=== PATIENT | female | born 1970 | race Caucasian/White ===

== ENCOUNTER 2019-11-13 16:23 | Emergency (ER) | payer OTHER ==
[~2019-11-13] VITALS: Ht 160 cm; Wt 87.1 kg
[~2019-11-13 16:23] MED LIST: ABILIFY2 MG PO; ADV 500/50 INH; CLONIDINE0.2 MG PO; DICYCLOMINE HCL20 MG PO; DOXEPIN50 MG PO; GLUCOPHAGE500 M1 PO; HYDROCHLOROTH12.5 M2 PO; IBU600 M1 PO; LIPITOR40 MG PO; MECLIZINE HCL25 M2 PO; MELATONIN10 M2 PO; METOPROLOL SUCC25 M2 PO; NEURONTIN100 MG PO; PLAVIX75 M1 PO; PREDNISONE10 MG PO; PREDNISONE20 M1 PO; TAMIFLU 75MG CA75 MG PO; VENTOLIN 02.5 MG/3 M INH; VISTARIL50 MG PO; VITAMIN D32000 UNI1 PO; ZANTAC 150150 MG PO; ZOLOFT100 MG PO
== END 2019-11-13 17:17 | disposition home or self-care (01) ==
LOC: ED 16:23
DX: S50.12XA Contusion of left forearm, initial encounter (principal); Z88.0 Allergy status to penicillin; Z88.6 Allergy status to analgesic agent; Z88.8 Allergy status to other drugs, medicaments and biological substances; Z88.2 Allergy status to sulfonamides; Z79.899 Other long term (current) drug therapy; Z87.891 Personal history of nicotine dependence; W20.8XXA Other cause of strike by thrown, projected or falling object, initial encounter; Y93.89 Activity, other specified; Y92.89 Other specified places as the place of occurrence of the external cause; Y99.8 Other external cause status

== ENCOUNTER 2020-12-25 00:28 | Emergency (ER) | payer OTHER ==
[~2020-12-25] VITALS: Ht 160 cm; Wt 88.5 kg
[2020-12-25 01:16] LABS: BASO # 0.1 10*3/uL (0.0-0.1); BASO % 0.8 % (0.0-1.0); EOS # 0.2 10*3/uL (0.0-0.4); EOS % 2.6 % (1.0-4.0); HEMATOCRIT 34.5 % (37.0-47.0); LYMPH # 2.9 10*3/uL (1.3-4.4); LYMPH % 31.2 % (27.0-41.0); MEAN CELL VOLUME 90.3 fl (81.0-99.0); MEAN CORPUSCULAR HGB 29.3 pg (27.0-31.0); MEAN CORPUSCULAR HGB CONC 32.5 g/dl (33.0-37.0); MEAN PLATELET VOLUME 9.8 fl (9.6-12.3); MONO # 0.8 10*3/uL (0.1-1.0); MONO % 8.7 % (3.0-9.0); NEUT # 5.2 10*3/uL (2.3-7.9); NEUT % 56.5 % (47.0-73.0); PLATELET COUNT AUTOMATED 263 10*3/uL (130-400); RED BLOOD COUNT 3.82 10*6/uL (4.10-5.10); RED CELL DISTRI WIDTH 13.2 % (0-14.5); WHITE BLOOD COUNT 9.2 10*3/uL (4.8-10.8)
[2020-12-25 01:34] LABS: ALKALINE PHOSPHATASE 105 U/L (45-117); BUN 19 mg/dl (7-24); CHLORIDE 104 mmol/L (98-107); CREATININE 0.75 mg/dL (0.55-1.02); POTASSIUM 2.7 mmol/L (3.5-5.1); SGOT/AST 19 IU/L (3-35); SGPT/ALT 25 U/L (12-78); SODIUM 142 mmol/L (136-145); TOTAL PROTEIN 7.3 gm/dL (6.4-8.2)
[2020-12-25] MEDS ORDERED: PREDNISONE20 M1 PO (01:57)
[2020-12-25] MEDS ORDERED: POTASSIUM20 MEQ/16 PO (02:11)
[2020-12-25] MEDS ORDERED: HYDROXYZINE HCL25 MG PO (02:11)
== END 2020-12-25 02:18 | disposition home or self-care (01) ==
LOC: ED 00:28
PROVIDERS: Emergency Medicine
DX: L29.9 Pruritus, unspecified (principal); R21 Rash and other nonspecific skin eruption; E87.6 Hypokalemia; Z88.0 Allergy status to penicillin; Z88.6 Allergy status to analgesic agent; Z88.2 Allergy status to sulfonamides; Z88.8 Allergy status to other drugs, medicaments and biological substances; Z79.899 Other long term (current) drug therapy; Z87.891 Personal history of nicotine dependence

== ENCOUNTER 2021-01-11 18:11 | Emergency (ER) | payer OTHER ==
[~2021-01-11] VITALS: Ht 160 cm; Wt 83.5 kg
[~2021-01-11 18:11] MED LIST changes: +HYDROXYZINE HCL25 MG PO; +POTASSIUM20 MEQ/16 PO
[2021-01-11] MEDS ORDERED: OMEPRAZOLE40 MG PO (18:26)
[2021-01-11] MEDS ORDERED: LIPITOR80 MG PO (18:27)
[2021-01-11] MEDS ORDERED: CLARITIN10 MG PO (18:27)
[2021-01-11] MEDS ORDERED: INTRINSI B12-F1 EACH PO (18:28)
[2021-01-11] MEDS ORDERED: IBU800 M1 PO (18:29)
[2021-01-11] MEDS ORDERED: MONTELUKAST SOD10 MG PO (18:29)
[2021-01-11] MEDS ORDERED: SPIRIVA RESPIMAT4 GM INH (18:30)
[2021-01-11] MEDS ORDERED: FLOVENT DISKUS50 MCG INH (18:30)
[2021-01-11] MEDS ORDERED: TRULICITY1.5 MG/0.5 SC (18:31)
[2021-01-11] MEDS ORDERED: PROAIR HFA8.5 GM INH (18:31)
[2021-01-11] MEDS ORDERED: Ipratropium Brom3 ML INH (18:32)
== END 2021-01-11 21:08 | disposition home or self-care (01) ==
LOC: ED 18:11
DX: Z01.84 Encounter for antibody response examination (principal); Z20.822 Contact with and (suspected) exposure to COVID-19; J44.9 Chronic obstructive pulmonary disease, unspecified; E10.9 Type 1 diabetes mellitus without complications; Z88.0 Allergy status to penicillin; Z88.6 Allergy status to analgesic agent; Z91.040 Latex allergy status; Z88.1 Allergy status to other antibiotic agents; Z88.8 Allergy status to other drugs, medicaments and biological substances; Z79.899 Other long term (current) drug therapy; Z86.73 Personal history of transient ischemic attack (TIA), and cerebral infarction without residual deficits; Z87.891 Personal history of nicotine dependence

== ENCOUNTER 2021-01-22 14:53 | Emergency (ER) | payer OTHER ==
[~2021-01-22] VITALS: Ht 160 cm; Wt 83.5 kg
[~2021-01-22 14:53] MED LIST changes: +CLARITIN10 MG PO; +FLOVENT DISKUS50 MCG INH; +IBU800 M1 PO; +INTRINSI B12-F1 EACH PO; +Ipratropium Brom3 ML INH; +LIPITOR80 MG PO; +MONTELUKAST SOD10 MG PO; +OMEPRAZOLE40 MG PO; +PROAIR HFA8.5 GM INH; +SPIRIVA RESPIMAT4 GM INH; +TRULICITY1.5 MG/0.5 SC
[2021-01-22 19:10] LABS: BASO % 0.6 % (0.0-1.0); EOS # 0.2 10*3/uL (0.0-0.4); EOS % 3.2 % (1.0-4.0); LYMPH # 2.3 10*3/uL (1.3-4.4); LYMPH % 35.5 % (27.0-41.0); MEAN CELL VOLUME 91.9 fl (81.0-99.0); MEAN CORPUSCULAR HGB 29.7 pg (27.0-31.0); MEAN CORPUSCULAR HGB CONC 32.4 g/dl (33.0-37.0); MEAN PLATELET VOLUME 9.8 fl (9.6-12.3); MONO # 0.6 10*3/uL (0.1-1.0); MONO % 8.8 % (3.0-9.0); NEUT # 3.4 10*3/uL (2.3-7.9); NEUT % 51.6 % (47.0-73.0); PLATELET COUNT AUTOMATED 250 10*3/uL (130-400); RED CELL DISTRI WIDTH 13.2 % (0-14.5); WHITE BLOOD COUNT 6.5 10*3/uL (4.8-10.8)
[2021-01-22 19:31] LABS: ALBUMIN 3.9 gm/dl (3.1-4.5); ALKALINE PHOSPHATASE 92 U/L (45-117); BUN 13 mg/dl (7-24); CHLORIDE 105 mmol/L (98-107); CREATININE 0.69 mg/dL (0.55-1.02); POTASSIUM 2.6 mmol/L (3.5-5.1); SGOT/AST 18 IU/L (3-35); SGPT/ALT 27 U/L (12-78); SODIUM 141 mmol/L (136-145); TOTAL PROTEIN 7.1 gm/dL (6.4-8.2)
== END 2021-01-23 06:30 | disposition home or self-care (01) ==
LOC: ED 14:53
PROVIDERS: Physician Assistant
DX: S80.12XA Contusion of left lower leg, initial encounter (principal); S80.11XA Contusion of right lower leg, initial encounter; Z88.0 Allergy status to penicillin; Z88.6 Allergy status to analgesic agent; Z88.2 Allergy status to sulfonamides; Z88.8 Allergy status to other drugs, medicaments and biological substances; Z79.899 Other long term (current) drug therapy; Z87.891 Personal history of nicotine dependence; X58.XXXA Exposure to other specified factors, initial encounter; Y93.89 Activity, other specified; Y92.89 Other specified places as the place of occurrence of the external cause; Y99.8 Other external cause status

== ENCOUNTER 2021-01-31 17:15 | Emergency (ER) | payer OTHER ==
[~2021-01-31] VITALS: Ht 160 cm; Wt 81.6 kg
[2021-01-31 20:08] LABS: BASO # 0.1 10*3/uL (0.0-0.1); BASO % 0.5 % (0.0-1.0); EOS # 0.1 10*3/uL (0.0-0.4); EOS % 0.9 % (1.0-4.0); HEMATOCRIT 36.2 % (37.0-47.0); LYMPH # 2.4 10*3/uL (1.3-4.4); LYMPH % 19.5 % (27.0-41.0); MEAN CELL VOLUME 89.8 fl (81.0-99.0); MEAN CORPUSCULAR HGB 29.5 pg (27.0-31.0); MEAN CORPUSCULAR HGB CONC 32.9 g/dl (33.0-37.0); MEAN PLATELET VOLUME 9.7 fl (9.6-12.3); MONO # 1.1 10*3/uL (0.1-1.0); MONO % 9.4 % (3.0-9.0); NEUT # 8.4 10*3/uL (2.3-7.9); NEUT % 69.2 % (47.0-73.0); PLATELET COUNT AUTOMATED 324 10*3/uL (130-400); RED BLOOD COUNT 4.03 10*6/uL (4.10-5.10); RED CELL DISTRI WIDTH 12.9 % (0-14.5); WHITE BLOOD COUNT 12.1 10*3/uL (4.8-10.8)
[2021-01-31 20:31] LABS: ALBUMIN 4.6 gm/dl (3.1-4.5); ALKALINE PHOSPHATASE 113 U/L (45-117); BUN 14 mg/dl (7-24); CHLORIDE 101 mmol/L (98-107); CREATININE 0.83 mg/dL (0.55-1.02); LIPASE 108 U/L (73-393); POTASSIUM 2.6 mmol/L (3.5-5.1); SGOT/AST 18 IU/L (3-35); SGPT/ALT 34 U/L (12-78); SODIUM 140 mmol/L (136-145); TOTAL PROTEIN 7.8 gm/dL (6.4-8.2)
[2021-01-31] MEDS ORDERED: ZOFRAN4 MG PO (23:11)
[2021-01-31] MEDS ORDERED: K-TAB20 MEQ PO (23:11)
== END 2021-02-01 00:49 | disposition home or self-care (01) ==
LOC: ED 17:15
PROVIDERS: Physician Assistant
DX: E87.6 Hypokalemia (principal); Z88.0 Allergy status to penicillin; Z88.6 Allergy status to analgesic agent; Z88.8 Allergy status to other drugs, medicaments and biological substances; Z88.2 Allergy status to sulfonamides; Z91.040 Latex allergy status; Z79.899 Other long term (current) drug therapy; Z87.891 Personal history of nicotine dependence

== ENCOUNTER 2021-02-27 08:10 | Observation (INO) | payer OTHER ==
[~2021-02-27] VITALS: Ht 160 cm; Wt 77.4 kg
[2021-02-27] VITALS (7 sets, daily range): BP systolic 107–139; BP diastolic 51–76
[~2021-02-27 08:10] MED LIST changes: +K-TAB20 MEQ PO; +ZOFRAN4 MG PO
[2021-02-27 08:55] LABS: BASO % 0.7 % (0.0-1.0); EOS # 0.4 10*3/uL (0.0-0.4); EOS % 6.9 % (1.0-4.0); HEMATOCRIT 33.3 % (37.0-47.0); LYMPH # 1.5 10*3/uL (1.3-4.4); LYMPH % 26.6 % (27.0-41.0); MEAN CELL VOLUME 92.5 fl (81.0-99.0); MEAN CORPUSCULAR HGB 29.4 pg (27.0-31.0); MEAN CORPUSCULAR HGB CONC 31.8 g/dl (33.0-37.0); MEAN PLATELET VOLUME 9.4 fl (9.6-12.3); MONO # 0.4 10*3/uL (0.1-1.0); MONO % 6.6 % (3.0-9.0); NEUT # 3.4 10*3/uL (2.3-7.9); NEUT % 59.2 % (47.0-73.0); PLATELET COUNT AUTOMATED 253 10*3/uL (130-400); RED CELL DISTRI WIDTH 13.2 % (0-14.5); WHITE BLOOD COUNT 5.8 10*3/uL (4.8-10.8)
[2021-02-27 09:07] LABS: ACT PARTIAL THROMBO TIME 24.9 SECONDS (20.0-32.1)
[2021-02-27 09:13] LABS: ALBUMIN 3.7 gm/dl (3.1-4.5); ALKALINE PHOSPHATASE 92 U/L (45-117); BUN 12 mg/dl (7-24); CHLORIDE 112 mmol/L (98-107); CREATININE 0.77 mg/dL (0.55-1.02); LIPASE 114 U/L (73-393); POTASSIUM 3.2 mmol/L (3.5-5.1); SGOT/AST 13 IU/L (3-35); SGPT/ALT 22 U/L (12-78); SODIUM 143 mmol/L (136-145); TOTAL PROTEIN 7.1 gm/dL (6.4-8.2)
[2021-02-27] MEDS ORDERED: IBU800 M1 PO (14:57)
[2021-02-27] MEDS ORDERED: GOOD NEIGHBOR M25 M1 PO (14:58)
[2021-02-27] MEDS ORDERED: DICYCLOMINE HYD20 MG PO (14:59)
[2021-02-28] VITALS: BP 103/57
[2021-02-28 07:22] LABS: BASO # 0.1 10*3/uL (0.0-0.1); EOS # 0.3 10*3/uL (0.0-0.4); EOS % 6.5 % (1.0-4.0); HEMATOCRIT 32.7 % (37.0-47.0); LYMPH # 1.7 10*3/uL (1.3-4.4); LYMPH % 32.6 % (27.0-41.0); MEAN CELL VOLUME 93.2 fl (81.0-99.0); MEAN CORPUSCULAR HGB 29.6 pg (27.0-31.0); MEAN CORPUSCULAR HGB CONC 31.8 g/dl (33.0-37.0); MEAN PLATELET VOLUME 9.8 fl (9.6-12.3); MONO # 0.4 10*3/uL (0.1-1.0); MONO % 6.9 % (3.0-9.0); NEUT # 2.8 10*3/uL (2.3-7.9); NEUT % 52.6 % (47.0-73.0); PLATELET COUNT AUTOMATED 256 10*3/uL (130-400); RED BLOOD COUNT 3.51 10*6/uL (4.10-5.10); RED CELL DISTRI WIDTH 13.3 % (0-14.5); WHITE BLOOD COUNT 5.2 10*3/uL (4.8-10.8)
[2021-02-28 07:42] LABS: ALBUMIN 3.5 gm/dl (3.1-4.5); BUN 10 mg/dl (7-24); CHLORIDE 111 mmol/L (98-107); CHOLESTEROL 136 mg/dL (<200); CREATININE 0.61 mg/dL (0.55-1.02); POTASSIUM 3.7 mmol/L (3.5-5.1); SGOT/AST 11 IU/L (3-35); SGPT/ALT 21 U/L (12-78); SODIUM 142 mmol/L (136-145); TOTAL PROTEIN 6.6 gm/dL (6.4-8.2); TRIGLYCERIDES 92 mg/dl (<150)
[2021-02-28 07:43] LABS: ALKALINE PHOSPHATASE 83 U/L (45-117); LDL CHOLESTEROL 64 mg/dL (9-159)
[2021-02-28 08:00] VITALS: BP 100/50; BP 100/60
== END 2021-02-28 13:54 | disposition home or self-care (01) ==
LOC: ED 08:10 → EDHOLD 14:06 → 5E 14:06 → EDHOLD 16:42 → 5E 16:58
PROVIDERS: Emergency Medicine; Student in an Organized Health Care Education/Training Program; ADMIT Student in an Organized Health Care Education/Training Program; ATTEND Student in an Organized Health Care Education/Training Program
DX: R29.898 Other symptoms and signs involving the musculoskeletal system (principal); R42 Dizziness and giddiness; E87.6 Hypokalemia; E87.8 Other disorders of electrolyte and fluid balance, not elsewhere classified; D64.9 Anemia, unspecified; E11.22 Type 2 diabetes mellitus with diabetic chronic kidney disease; N18.30 Chronic kidney disease, stage 3 unspecified; R10.2 Pelvic and perineal pain; J44.9 Chronic obstructive pulmonary disease, unspecified; R06.02 Shortness of breath; Z86.73 Personal history of transient ischemic attack (TIA), and cerebral infarction without residual deficits; E78.5 Hyperlipidemia, unspecified; E55.9 Vitamin D deficiency, unspecified; Z90.710 Acquired absence of both cervix and uterus; E66.01 Morbid (severe) obesity due to excess calories; Z79.899 Other long term (current) drug therapy

== ENCOUNTER 2021-03-15 05:35 | Emergency (ER) | payer OTHER ==
[~2021-03-15] VITALS: Ht 160 cm; Wt 76.2 kg
[~2021-03-15 05:35] MED LIST changes: +DICYCLOMINE HYD20 MG PO; +GOOD NEIGHBOR M25 M1 PO
[2021-03-15 07:57] LABS: BASO % 0.6 % (0.0-1.0); EOS # 0.3 10*3/uL (0.0-0.4); EOS % 5.2 % (1.0-4.0); HEMATOCRIT 33.7 % (37.0-47.0); LYMPH # 1.4 10*3/uL (1.3-4.4); LYMPH % 27.2 % (27.0-41.0); MEAN CELL VOLUME 92.6 fl (81.0-99.0); MEAN CORPUSCULAR HGB 29.9 pg (27.0-31.0); MEAN CORPUSCULAR HGB CONC 32.3 g/dl (33.0-37.0); MEAN PLATELET VOLUME 9.8 fl (9.6-12.3); MONO # 0.4 10*3/uL (0.1-1.0); MONO % 8.1 % (3.0-9.0); NEUT % 58.7 % (47.0-73.0); PLATELET COUNT AUTOMATED 205 10*3/uL (130-400); RED BLOOD COUNT 3.64 10*6/uL (4.10-5.10); RED CELL DISTRI WIDTH 13.1 % (0-14.5); WHITE BLOOD COUNT 5.2 10*3/uL (4.8-10.8)
[2021-03-15 08:14] LABS: ALBUMIN 3.8 gm/dl (3.1-4.5); ALKALINE PHOSPHATASE 78 U/L (45-117); BUN 11 mg/dl (7-24); CHLORIDE 108 mmol/L (98-107); CREATININE 0.61 mg/dL (0.55-1.02); LIPASE 84 U/L (73-393); POTASSIUM 3.5 mmol/L (3.5-5.1); SGOT/AST 15 IU/L (3-35); SGPT/ALT 23 U/L (12-78); SODIUM 142 mmol/L (136-145); TOTAL PROTEIN 6.6 gm/dL (6.4-8.2)
[2021-03-15] MEDS ORDERED: ZOFRAN4 MG PO (08:30)
== END 2021-03-15 08:35 | disposition home or self-care (01) ==
LOC: ED 05:35
PROVIDERS: Family Medicine
DX: A08.4 Viral intestinal infection, unspecified (principal); Z88.0 Allergy status to penicillin; Z88.1 Allergy status to other antibiotic agents; Z88.6 Allergy status to analgesic agent; Z91.040 Latex allergy status; Z88.8 Allergy status to other drugs, medicaments and biological substances; Z79.899 Other long term (current) drug therapy; Z87.891 Personal history of nicotine dependence; Z90.711 Acquired absence of uterus with remaining cervical stump

== ENCOUNTER 2021-03-18 20:27 | Emergency (ER) | payer OTHER ==
[~2021-03-18] VITALS: Ht 160 cm; Wt 76.2 kg
== END 2021-03-18 21:02 | disposition home or self-care (01) ==
LOC: ED 20:27
DX: T78.49XA Other allergy, initial encounter (principal); J45.909 Unspecified asthma, uncomplicated; J44.9 Chronic obstructive pulmonary disease, unspecified; G43.909 Migraine, unspecified, not intractable, without status migrainosus; E11.22 Type 2 diabetes mellitus with diabetic chronic kidney disease; N18.30 Chronic kidney disease, stage 3 unspecified; Z88.0 Allergy status to penicillin; Z88.1 Allergy status to other antibiotic agents; Z88.6 Allergy status to analgesic agent; Z88.8 Allergy status to other drugs, medicaments and biological substances; Z91.040 Latex allergy status; Z79.899 Other long term (current) drug therapy; Z87.891 Personal history of nicotine dependence; X58.XXXA Exposure to other specified factors, initial encounter

== ENCOUNTER 2021-03-24 13:25 | Emergency (ER) | payer OTHER ==
[~2021-03-24] VITALS: Ht 160 cm; Wt 76.2 kg
[2021-03-24 15:11] LABS: BASO % 0.7 % (0.0-1.0); EOS # 0.3 10*3/uL (0.0-0.4); EOS % 5.5 % (1.0-4.0); HEMATOCRIT 32.6 % (37.0-47.0); LYMPH # 1.8 10*3/uL (1.3-4.4); LYMPH % 31.4 % (27.0-41.0); MEAN CELL VOLUME 92.6 fl (81.0-99.0); MEAN CORPUSCULAR HGB 29.5 pg (27.0-31.0); MEAN CORPUSCULAR HGB CONC 31.9 g/dl (33.0-37.0); MEAN PLATELET VOLUME 9.9 fl (9.6-12.3); MONO # 0.5 10*3/uL (0.1-1.0); MONO % 8.2 % (3.0-9.0); PLATELET COUNT AUTOMATED 220 10*3/uL (130-400); RED BLOOD COUNT 3.52 10*6/uL (4.10-5.10); WHITE BLOOD COUNT 5.6 10*3/uL (4.8-10.8)
[2021-03-24 15:36] LABS: ALBUMIN 3.7 gm/dl (3.1-4.5); ALKALINE PHOSPHATASE 78 U/L (45-117); BUN 11 mg/dl (7-24); CHLORIDE 108 mmol/L (98-107); CREATININE 0.63 mg/dL (0.55-1.02); POTASSIUM 3.4 mmol/L (3.5-5.1); SGPT/ALT 23 U/L (12-78); SODIUM 142 mmol/L (136-145); TOTAL PROTEIN 6.6 gm/dL (6.4-8.2)
[2021-03-24 15:39] LABS: SGOT/AST 12 IU/L (3-35)
== END 2021-03-24 16:03 | disposition home or self-care (01) ==
LOC: ED 13:25
PROVIDERS: Nurse Practitioner Family
DX: E87.6 Hypokalemia (principal); R20.0 Anesthesia of skin; Z88.0 Allergy status to penicillin; Z88.6 Allergy status to analgesic agent; Z88.1 Allergy status to other antibiotic agents; Z88.8 Allergy status to other drugs, medicaments and biological substances; Z91.040 Latex allergy status; Z79.899 Other long term (current) drug therapy; Z87.891 Personal history of nicotine dependence

== ENCOUNTER 2021-03-31 21:56 | Emergency (ER) | payer OTHER ==
[~2021-03-31] VITALS: Ht 160 cm; Wt 76.2 kg
[2021-03-31] MEDS ORDERED: MELOXICAM7.5 MG PO (22:08)
[2021-03-31] MEDS ORDERED: HYDROXYZINE HCL25 MG PO (22:08)
[2021-03-31 22:40] LABS: BASO # 0.1 10*3/uL (0.0-0.1); BASO % 0.7 % (0.0-1.0); EOS # 0.4 10*3/uL (0.0-0.4); EOS % 3.6 % (1.0-4.0); HEMATOCRIT 37.7 % (37.0-47.0); MEAN CELL VOLUME 89.5 fl (81.0-99.0); MEAN CORPUSCULAR HGB CONC 32.4 g/dl (33.0-37.0); MEAN PLATELET VOLUME 10.2 fl (9.6-12.3); MONO # 0.8 10*3/uL (0.1-1.0); MONO % 7.9 % (3.0-9.0); NEUT # 6.1 10*3/uL (2.3-7.9); NEUT % 58.5 % (47.0-73.0); PLATELET COUNT AUTOMATED 289 10*3/uL (130-400); RED BLOOD COUNT 4.21 10*6/uL (4.10-5.10); RED CELL DISTRI WIDTH 12.5 % (0-14.5); WHITE BLOOD COUNT 10.4 10*3/uL (4.8-10.8)
[2021-03-31 22:57] LABS: ALBUMIN 4.2 gm/dl (3.1-4.5); ALKALINE PHOSPHATASE 103 U/L (45-117); BUN 16 mg/dl (7-24); CHLORIDE 103 mmol/L (98-107); CREATININE 0.85 mg/dL (0.55-1.02); POTASSIUM 2.5 mmol/L (3.5-5.1); SGOT/AST 14 IU/L (3-35); SGPT/ALT 20 U/L (12-78); SODIUM 140 mmol/L (136-145); TOTAL PROTEIN 7.3 gm/dL (6.4-8.2)
[2021-04-01 00:56] LABS: BILIRUBIN Negative (Negative); BLOOD Negative (Negative); CLARITY Clear (Clear); COLOR Yellow (Yellow); GLUCOSE Negative (Negative); KETONE Trace (Negative); LEUKO ESTERASE 2+ (Negative); NITRITE Negative (Negative); SPECIFIC GRAVITY 1.025 (1.001-1.030)
[2021-04-01 01:29] LABS: RBC 16-20 rbc/hpf (0-2)
[2021-04-01 01:30] LABS: BACTERIA 3+; EPITHELIAL CELLS 16-20; WBC 21-30 wbc/hpf (0-5)
[2021-04-01] MEDS ORDERED: CIPRO500 MG PO (02:28)
== END 2021-04-01 03:02 | disposition home or self-care (01) ==
LOC: ED 21:56
PROVIDERS: Internal Medicine
DX: N39.0 Urinary tract infection, site not specified (principal); R19.7 Diarrhea, unspecified; E87.6 Hypokalemia; Z88.0 Allergy status to penicillin; Z88.6 Allergy status to analgesic agent; Z88.1 Allergy status to other antibiotic agents; Z91.040 Latex allergy status; Z88.8 Allergy status to other drugs, medicaments and biological substances; Z79.899 Other long term (current) drug therapy; Z90.710 Acquired absence of both cervix and uterus; Z87.891 Personal history of nicotine dependence

== ENCOUNTER 2021-04-02 05:50 | Emergency (ER) | payer OTHER ==
[~2021-04-02] VITALS: Ht 160 cm; Wt 76.2 kg
[~2021-04-02 05:50] MED LIST changes: +CIPRO500 MG PO; +MELOXICAM7.5 MG PO
[2021-04-02 06:16] LABS: BASO % 0.6 % (0.0-1.0); EOS # 0.3 10*3/uL (0.0-0.4); EOS % 4.6 % (1.0-4.0); HEMATOCRIT 32.6 % (37.0-47.0); LYMPH # 2.1 10*3/uL (1.3-4.4); LYMPH % 30.6 % (27.0-41.0); MEAN CELL VOLUME 88.8 fl (81.0-99.0); MEAN CORPUSCULAR HGB 29.4 pg (27.0-31.0); MEAN CORPUSCULAR HGB CONC 33.1 g/dl (33.0-37.0); MONO # 0.6 10*3/uL (0.1-1.0); MONO % 8.6 % (3.0-9.0); NEUT # 3.8 10*3/uL (2.3-7.9); NEUT % 55.5 % (47.0-73.0); PLATELET COUNT AUTOMATED 220 10*3/uL (130-400); RED BLOOD COUNT 3.67 10*6/uL (4.10-5.10); RED CELL DISTRI WIDTH 12.3 % (0-14.5); WHITE BLOOD COUNT 6.8 10*3/uL (4.8-10.8)
[2021-04-02 06:33] LABS: ALBUMIN 3.7 gm/dl (3.1-4.5); ALKALINE PHOSPHATASE 96 U/L (45-117); BUN 14 mg/dl (7-24); CHLORIDE 103 mmol/L (98-107); CREATININE 0.77 mg/dL (0.55-1.02); POTASSIUM 2.8 mmol/L (3.5-5.1); SGOT/AST 14 IU/L (3-35); SGPT/ALT 19 U/L (12-78); SODIUM 140 mmol/L (136-145); TOTAL PROTEIN 6.6 gm/dL (6.4-8.2)
== END 2021-04-02 15:52 | disposition home or self-care (01) ==
LOC: ED 05:50
PROVIDERS: Internal Medicine
DX: R07.9 Chest pain, unspecified (principal); R51.9 Headache, unspecified; Z88.0 Allergy status to penicillin; Z88.6 Allergy status to analgesic agent; Z88.1 Allergy status to other antibiotic agents; Z88.8 Allergy status to other drugs, medicaments and biological substances; Z79.899 Other long term (current) drug therapy; Z90.710 Acquired absence of both cervix and uterus; Z98.890 Other specified postprocedural states; Z87.891 Personal history of nicotine dependence

== ENCOUNTER → 2021-04-09 | Outpatient (CLI) | payer OTHER | END | disposition home or self-care (01) | LOC: LAB 09:42 | PROVIDERS: ATTEND Internal Medicine Critical Care Medicine | DX: D64.9 Anemia, unspecified (principal); R53.83 Other fatigue ==

== ENCOUNTER → 2021-04-16 | Outpatient (CLI) | payer OTHER | END | disposition home or self-care (01) | LOC: LAB 12:40 | PROVIDERS: ATTEND Family Medicine | DX: R19.7 Diarrhea, unspecified (principal) ==

== ENCOUNTER 2021-04-28 02:22 | Emergency (ER) | payer OTHER ==
[2021-04-28 04:36] LABS: BASO # 0.1 10*3/uL (0.0-0.1); BASO % 0.4 % (0.0-1.0); EOS # 0.2 10*3/uL (0.0-0.4); EOS % 1.5 % (1.0-4.0); HEMATOCRIT 35.7 % (37.0-47.0); LYMPH # 2.5 10*3/uL (1.3-4.4); LYMPH % 18.9 % (27.0-41.0); MEAN CELL VOLUME 90.8 fl (81.0-99.0); MEAN CORPUSCULAR HGB 29.8 pg (27.0-31.0); MEAN CORPUSCULAR HGB CONC 32.8 g/dl (33.0-37.0); MEAN PLATELET VOLUME 9.3 fl (9.6-12.3); MONO # 0.9 10*3/uL (0.1-1.0); MONO % 7.2 % (3.0-9.0); NEUT # 9.4 10*3/uL (2.3-7.9); NEUT % 71.8 % (47.0-73.0); PLATELET COUNT AUTOMATED 275 10*3/uL (130-400); RED BLOOD COUNT 3.93 10*6/uL (4.10-5.10); RED CELL DISTRI WIDTH 12.9 % (0-14.5); WHITE BLOOD COUNT 13.1 10*3/uL (4.8-10.8)
[2021-04-28 04:52] LABS: ALKALINE PHOSPHATASE 87 U/L (45-117); BUN 26 mg/dl (7-24); CHLORIDE 106 mmol/L (98-107); CREATININE 0.82 mg/dL (0.55-1.02); POTASSIUM 2.8 mmol/L (3.5-5.1); SGOT/AST 12 IU/L (3-35); SGPT/ALT 20 U/L (12-78); SODIUM 140 mmol/L (136-145); TOTAL PROTEIN 7.6 gm/dL (6.4-8.2)
[2021-04-28] MEDS ORDERED: ZOFRAN4 MG PO (08:44)
== END 2021-04-28 09:44 | disposition home or self-care (01) ==
LOC: ED 02:22
PROVIDERS: Emergency Medicine
DX: K52.9 Noninfective gastroenteritis and colitis, unspecified (principal); E78.5 Hyperlipidemia, unspecified; E66.9 Obesity, unspecified; N18.30 Chronic kidney disease, stage 3 unspecified; Z88.0 Allergy status to penicillin; Z88.1 Allergy status to other antibiotic agents; Z88.8 Allergy status to other drugs, medicaments and biological substances; Z91.040 Latex allergy status; Z79.899 Other long term (current) drug therapy; Z86.73 Personal history of transient ischemic attack (TIA), and cerebral infarction without residual deficits; Z90.710 Acquired absence of both cervix and uterus; Z87.891 Personal history of nicotine dependence

== ENCOUNTER → 2021-05-15 | Outpatient (CLI) | payer OTHER ==
[2021-05-15 13:13] LABS: BASO # 0.1 10*3/uL (0.0-0.1); BASO % 0.6 % (0.0-1.0); EOS # 0.3 10*3/uL (0.0-0.4); EOS % 3.3 % (1.0-4.0); HEMATOCRIT 35.3 % (37.0-47.0); LYMPH # 2.2 10*3/uL (1.3-4.4); LYMPH % 27.6 % (27.0-41.0); MEAN CELL VOLUME 90.3 fl (81.0-99.0); MEAN CORPUSCULAR HGB 29.4 pg (27.0-31.0); MEAN CORPUSCULAR HGB CONC 32.6 g/dl (33.0-37.0); MEAN PLATELET VOLUME 9.1 fl (9.6-12.3); MONO # 0.6 10*3/uL (0.1-1.0); MONO % 7.2 % (3.0-9.0); NEUT # 4.9 10*3/uL (2.3-7.9); NEUT % 61.1 % (47.0-73.0); PLATELET COUNT AUTOMATED 276 10*3/uL (130-400); RED BLOOD COUNT 3.91 10*6/uL (4.10-5.10); RED CELL DISTRI WIDTH 13.4 % (0-14.5); WHITE BLOOD COUNT 8.1 10*3/uL (4.8-10.8)
[2021-05-15 13:25] LABS: BUN 17 mg/dl (7-24); CHLORIDE 104 mmol/L (98-107); POTASSIUM 3.3 mmol/L (3.5-5.1); SODIUM 140 mmol/L (136-145)
== END | disposition home or self-care (01) ==
LOC: LAB 12:57
PROVIDERS: Orthopaedic Surgery; ATTEND Internal Medicine Critical Care Medicine
DX: Z01.818 Encounter for other preprocedural examination (principal); J45.50 Severe persistent asthma, uncomplicated; J30.89 Other allergic rhinitis; G47.33 Obstructive sleep apnea (adult) (pediatric); R53.83 Other fatigue; G56.01 Carpal tunnel syndrome, right upper limb; G25.81 Restless legs syndrome; Z68.28 Body mass index [BMI] 28.0-28.9, adult; Z87.891 Personal history of nicotine dependence; Z79.899 Other long term (current) drug therapy

== ENCOUNTER 2022-11-10 04:36 | Emergency (ER) | payer OTHER ==
[~2022-11-10] VITALS: Ht 160 cm; Wt 74.3 kg
[2022-11-10 05:47] LABS: ALKALINE PHOSPHATASE 91 U/L (46-116); BUN 14 mg/dl (9-23); CHLORIDE 105 mmol/L (98-107); POTASSIUM 3.6 mmol/L (3.4-5.1); SGPT/ALT 9 U/L (10-49); TOTAL PROTEIN 6.9 gm/dL (6.0-8.0)
[2022-11-10 05:58] LABS: BASO # 0.1 10*3/uL (0.0-0.1); EOS # 0.2 10*3/uL (0.0-0.4); EOS % 2.5 % (1.0-4.0); HEMATOCRIT 34.7 % (37.0-47.0); LYMPH # 2.6 10*3/uL (1.3-4.4); LYMPH % 37.9 % (27.0-41.0); MEAN CELL VOLUME 91.1 fl (81.0-99.0); MEAN CORPUSCULAR HGB 29.9 pg (27.0-31.0); MEAN CORPUSCULAR HGB CONC 32.9 g/dl (33.0-37.0); MONO # 0.5 10*3/uL (0.1-1.0); MONO % 7.9 % (3.0-9.0); NEUT # 3.4 10*3/uL (2.3-7.9); NEUT % 49.7 % (47.0-73.0); PLATELET COUNT AUTOMATED 236 10*3/uL (130-400); RED BLOOD COUNT 3.81 10*6/uL (4.10-5.10); RED CELL DISTRI WIDTH 12.7 % (0-14.5); WHITE BLOOD COUNT 6.8 10*3/uL (4.8-10.8)
== END 2022-11-10 07:31 | disposition home or self-care (01) ==
LOC: ED 04:36
PROVIDERS: Internal Medicine
DX: R20.2 Paresthesia of skin (principal); R20.0 Anesthesia of skin; M79.604 Pain in right leg; Z88.0 Allergy status to penicillin; Z88.5 Allergy status to narcotic agent; Z88.1 Allergy status to other antibiotic agents; Z88.8 Allergy status to other drugs, medicaments and biological substances; Z91.040 Latex allergy status; Z88.2 Allergy status to sulfonamides; Z79.899 Other long term (current) drug therapy; Z90.711 Acquired absence of uterus with remaining cervical stump; Z98.890 Other specified postprocedural states; Z87.891 Personal history of nicotine dependence

== ENCOUNTER 2023-11-13 22:50 | Emergency (ER) | payer OTHER ==
[~2023-11-13] VITALS: Wt 71.2 kg
[2023-11-14] MEDS ORDERED: SODIUM CHLORIDE 0.9% 1,000 ML IV ONE (01:15)
[2023-11-14] MEDS ORDERED: MORPHINE Sulfate 2 MG/ML SYR IV ONE (01:15)
[2023-11-14 01:30] LABS: BASO % 0.5 % (0.0-1.0); EOS # 0.2 10*3/uL (0.0-0.4); EOS % 3.7 % (1.0-4.0); HEMATOCRIT 34.5 % (37.0-47.0); LYMPH # 2.2 10*3/uL (1.3-4.4); LYMPH % 33.4 % (27.0-41.0); MEAN CELL VOLUME 91.8 fl (81.0-99.0); MEAN CORPUSCULAR HGB CONC 31.6 g/dl (33.0-37.0); MEAN PLATELET VOLUME 9.5 fl (9.6-12.3); MONO # 0.5 10*3/uL (0.1-1.0); MONO % 7.6 % (3.0-9.0); NEUT # 3.5 10*3/uL (2.3-7.9); NEUT % 54.5 % (47.0-73.0); PLATELET COUNT AUTOMATED 199 10*3/uL (130-400); RED BLOOD COUNT 3.76 10*6/uL (4.10-5.10); RED CELL DISTRI WIDTH 13.6 % (0-14.5); WHITE BLOOD COUNT 6.4 10*3/uL (4.8-10.8)
[2023-11-14] MEDS ORDERED: IOHEXOL 300 MG/ML 100 ML VIAL IV ONE (01:35)
[2023-11-14 01:50] LABS: BUN 17 mg/dl (9-23); CHLORIDE 107 mmol/L (98-107); LIPASE 42 U/L (12-53); POTASSIUM 3.6 mmol/L (3.4-5.1)
[2023-11-14] MEDS ORDERED: PERCOCET 5-3251 EACH PO (04:15)
== END 2023-11-14 04:24 | disposition home or self-care (01) ==
LOC: ED 22:50
PROVIDERS: Internal Medicine
DX: K80.50 Calculus of bile duct without cholangitis or cholecystitis without obstruction (principal); R11.2 Nausea with vomiting, unspecified; J44.9 Chronic obstructive pulmonary disease, unspecified; E78.5 Hyperlipidemia, unspecified; G43.909 Migraine, unspecified, not intractable, without status migrainosus; D63.1 Anemia in chronic kidney disease; E11.22 Type 2 diabetes mellitus with diabetic chronic kidney disease; N18.30 Chronic kidney disease, stage 3 unspecified; I48.91 Unspecified atrial fibrillation; Z86.73 Personal history of transient ischemic attack (TIA), and cerebral infarction without residual deficits; Z88.0 Allergy status to penicillin; Z88.5 Allergy status to narcotic agent; Z88.1 Allergy status to other antibiotic agents; Z91.040 Latex allergy status; Z88.2 Allergy status to sulfonamides; Z88.8 Allergy status to other drugs, medicaments and biological substances; Z98.890 Other specified postprocedural states; Z97.10 Presence of artificial limb (complete) (partial), unspecified; Z87.891 Personal history of nicotine dependence

== ENCOUNTER 2023-11-21 21:09 | Inpatient (IN) | payer OTHER ==
[~2023-11-21] VITALS: Ht 160 cm; Wt 82.1 kg
[~2023-11-21 21:09] MED LIST changes: +PERCOCET 5-3251 EACH PO
[2023-11-21 21:33] VITALS: BP 141/53
[2023-11-21] MEDS ORDERED: Metoclopramide Hydrochloride 10 MG/2 ML AMP IV ONE (21:35)
[2023-11-21] MEDS ORDERED: diphenhydrAMINE hydrochloride 50 MG/ML VIAL IV ONE (21:35)
[2023-11-21] MEDS ORDERED: SODIUM CHLORIDE 0.9% 1,000 ML IV ONE (21:35)
[2023-11-21 21:55] LABS: BASO # 0.1 10*3/uL (0.0-0.1); BASO % 0.6 % (0.0-1.0); EOS # 0.3 10*3/uL (0.0-0.4); EOS % 2.7 % (1.0-4.0); HEMATOCRIT 36.7 % (37.0-47.0); LYMPH # 2.3 10*3/uL (1.3-4.4); LYMPH % 24.7 % (27.0-41.0); MEAN CELL VOLUME 92.2 fl (81.0-99.0); MEAN CORPUSCULAR HGB 29.1 pg (27.0-31.0); MEAN CORPUSCULAR HGB CONC 31.6 g/dl (33.0-37.0); MEAN PLATELET VOLUME 9.5 fl (9.6-12.3); MONO # 0.7 10*3/uL (0.1-1.0); MONO % 7.3 % (3.0-9.0); NEUT % 63.4 % (47.0-73.0); PLATELET COUNT AUTOMATED 223 10*3/uL (130-400); RED BLOOD COUNT 3.98 10*6/uL (4.10-5.10); RED CELL DISTRI WIDTH 13.4 % (0-14.5); WHITE BLOOD COUNT 9.5 10*3/uL (4.8-10.8)
[2023-11-21 22:13] LABS: ALKALINE PHOSPHATASE 99 U/L (46-116); BUN 13 mg/dl (9-23); CHLORIDE 106 mmol/L (98-107); POTASSIUM 3.7 mmol/L (3.4-5.1); SGPT/ALT 26 U/L (5-49); TOTAL PROTEIN 7.3 gm/dL (6.0-8.0)
[2023-11-21] MEDS ORDERED: Ondansetron Hydrochloride 4 MG/2 ML VIAL IV PRN (23:20)
[2023-11-21] MEDS ORDERED: MORPHINE Sulfate 2 MG/ML SYR IV PRN (23:20)
[2023-11-21] MEDS ORDERED: DEXTROSE 5% SALINE 0.45% 1,000 ML IV SCH (23:30)
[2023-11-21] MEDS ORDERED: DEXTROSE 10 % IN WATER 250 ML IV PRN (23:30)
[2023-11-21] MEDS ORDERED: IOHEXOL 300 MG/ML 100 ML VIAL IV ONE (23:40)
[2023-11-22] MEDS ORDERED: Pantoprazole Sodium 40 MG VIAL IV SCH (06:00)
[2023-11-22] MEDS ORDERED: INSULIN LISPRO 1 UNIT/0.01 ML SQ SCH (07:30)
== END 2023-11-22 02:10 | disposition left against medical advice (07) ==
LOC: ED 21:09 → EDHOLD 23:08
PROVIDERS: Internal Medicine; ADMIT Family Medicine; ATTEND Family Medicine
DX: K80.50 Calculus of bile duct without cholangitis or cholecystitis without obstruction (principal); F41.9 Anxiety disorder, unspecified; D64.9 Anemia, unspecified; E11.9 Type 2 diabetes mellitus without complications; E66.9 Obesity, unspecified; Z20.822 Contact with and (suspected) exposure to COVID-19; K58.9 Irritable bowel syndrome, unspecified; Z53.29 Procedure and treatment not carried out because of patient's decision for other reasons; Z88.5 Allergy status to narcotic agent; Z88.0 Allergy status to penicillin; Z88.8 Allergy status to other drugs, medicaments and biological substances; Z91.040 Latex allergy status; Z90.710 Acquired absence of both cervix and uterus; Z86.73 Personal history of transient ischemic attack (TIA), and cerebral infarction without residual deficits; Z68.31 Body mass index [BMI] 31.0-31.9, adult